=== PATIENT | male | born 1960 | race Caucasian/White ===

== ENCOUNTER 2023-04-21 06:17 | Outpatient (RCR) | payer BC, SELFPAY | END 2023-04-21 23:59 | disposition home or self-care (01) | LOC: RPT 06:17 | PROVIDERS: ATTENDING PHYSICIAN Physician Assistant; FAMILY PHYSICIAN Family Medicine | DX: Z47.1 Aftercare following joint replacement surgery (principal); Z73.6 Limitation of activities due to disability; R26.89 Other abnormalities of gait and mobility; Z96.641 Presence of right artificial hip joint | CPT/HCPCS: 97010; 97110; 97112; 97162 ==

== ENCOUNTER 2023-05-11 18:00 | Outpatient (RCR) | payer BC, SELFPAY | END 2023-05-11 23:59 | disposition home or self-care (01) | LOC: RPT 18:00 | PROVIDERS: ATTENDING PHYSICIAN Physician Assistant; FAMILY PHYSICIAN Family Medicine | DX: Z47.1 Aftercare following joint replacement surgery (principal); Z73.6 Limitation of activities due to disability; R26.89 Other abnormalities of gait and mobility; M25.551 Pain in right hip; Z96.641 Presence of right artificial hip joint | CPT/HCPCS: 97110; 97112 ==

== ENCOUNTER 2024-05-08 09:46 | Emergency (ER) | payer BC, SELFPAY ==
[2024-05-08 09:55] VITALS: BP 163/103
--- NOTE | 2024-05-08 10:56 | ED.GENMED ---
History of Present Illness
General
Chief Complaint: Back Pain
Source: patient
Time Seen by Provider: 05/08/24 10:22
History of Present Illness
History of Present Illness:
63-year-old male with past medical history of hypertension hyperlipoidemia, status post previous spinal fusion surgeries and right hip replacement presenting to the emergency department for evaluation after he fell 1 week ago while at work when he
accidentally stepped in a hole on a job site causing him to fall onto his left side now with gradually worsening pain to the left lower back/hip area that radiates down his left leg. Patient states that the pain was more tolerable at the beginning
of the week but has gradually worsened to the point this morning where he felt he was unable to go to work due to the pain. Patient states around 4 AM he took four 200 mg tablets of ibuprofen and then around 8 AM took an additional 2 tablets. He
states this did give him some relief but he still appears very uncomfortable. Denies any fevers, bowel or urinary incontinence, saddle anesthesias, substance use or any other injuries since the fall 1 week ago. Patient does note he did not notify
his work about the fall.
Past History
Past History
ED Past Medical History: HTN, Hypercholesterolemia and Other (Cervical and lumbar disc disease)
ED Past Surgical History: Orthopedic (Fractured right fibula with surgical repair)
Patient has exhibited threatening behavior?: No
PSI?: No
Social History
Tobacco: Former smoker
Alcohol: Occasional
Drug: None
Personal:
Living: with family
Employment: Employed
Family History
Family History: Negative Diabetes, Hypertension, Early CAD, Asthma or Cancer
Review of Systems
Review of Systems
All Other Systems: ROS reviewed and negative except as documented in HPI and ROS
Phy Exam
Physical Exam
Physical Exam:
GENERAL: Alert , in no apparent distress at rest but does appear uncomfortable with movement
EYE: clear conjunctiva b/l
NECK: Supple
ENT: mmm.
ABDOMEN: Soft, without focal tenderness, no r/g, no cvat
BACK: Normal range of motion, left paralumbar/sacroiliac tenderness, no midline bony tenderness, no rashes
NEUROLOGICAL: Alert and oriented, no focal neuro deficits. Patellar deep tendon reflexes intact and equal bilaterally, sensation grossly intact and equal to light touch bilateral lower extremities
SKIN: Warm and dry, skin intact.
MUSCULOSKELETAL: No edema, well perfused. EHL intact bilaterally
PSYCH: Normal and appropriate interaction.
Scores
Heart Failure Risk
Heart Failure Risk Score: Not Applicable
Heart Score for Chest Pain Patients
STEMI patient?: Not applicable
Withdrawal Assessment of Alcohol
Withdrawal Assessment Completed?: Not applicable
Course
Orders/Labs/Results
Orders:
Orders
05/08/24 10:32
CR Hip - LT w/wo Pel 2-3 Vw* Urgent
Comment:
Reason For Exam: left lower back/hip pain, fall
Include a pelvis x-ray?: Yes
CR Lumbar Spine 2 Or 3 Views Urgent
Reason For Exam: low back pain
Vital Signs
Initial and Last Documented VS:
Initial Vital Signs
Temp Pulse Resp BP Pulse Ox
98 F 95 16 163/103 95
05/08/24 09:55 05/08/24 09:55 05/08/24 09:55 05/08/24 09:55 05/08/24 09:55
Last Documented Vital Signs
Temp Pulse Resp BP Pulse Ox
98 F 83 18 172/102 98
05/08/24 09:55 05/08/24 12:11 05/08/24 12:11 05/08/24 12:11 05/08/24 12:11
MDM/Problems Addressed
Differential Diagnosis Includes:
Lumbar strain, sciatica, spinal stenosis, less concern for fracture of the lumbar spine/pelvis or hip
MDM/Problems Addressed:
63-year-old male presenting to the ER for evaluation of gradually worsening left-sided lower back/hip pain since he had an accidental fall 1 week ago. Attempted NSAIDs this morning with very slight relief. No current red flag symptoms. Will
obtain x-ray to further evaluate. Patient drove himself to the ER here and already took in excess quantity of NSAIDs so unable to treat with that here. Anticipate sending home with temporary prescription for oxycodone, Medrol pack, topical agents
and continued NSAIDs albeit at normal dosing. Patient may need to follow-up with his orthopedic team if symptoms persist. Anticipate discharge home.
*Radiology
Radiology exam reviewed: preliminary read by ED provider (No acute fracture of the pelvis. Significant degenerative changes of the lumbar spine)
*Pulse Oximetry
Patient hypoxic: no
*Critical Care Note
Total Time (30-74mins, 75-104mins- exclusive of procedures): Not Applicable
Data Reviewed
Review of Other/Old Records Reveals: Records and Radiology Studies
Patient Management
Escalation/DeEscalation of care consider admission/obs:
Imaging without any acute pathologies. Patient stable for discharge home and outpatient management. Prescription for Medrol Dosepak and oxycodone sent to pharmacy. [place] PDMP was reviewed without any prescriptive abnormalities found.
ED Attending Note
-
Portions of this chart may have been created with voice recognition software.� Occasional wrong word or��sound alike� substitutions may have occurred due to the inherent limitations of voice recognition software.
Discharge Plan
Departure
Patient Disposition: Home (Routine Discharge)
Date of Disposition: 05/08/24
Time of Disposition: 11:36
Patient with high blood pressure during this ER visit?: Yes
Discharge Problem:
Low back pain
Instructions: Low Back Pain (DC)
Prescriptions:
New
oxycodone-acetaminophen [Percocet] 5-325 mg tablet
1 tab PO Q6HPRN PRN (Reason: pain) Qty: 10 0RF
methylprednisolone [Medrol (Rupesh)] 4 mg tablets,dose pack
4 mg PO DIRECTED Qty: 21 0RF
No Action
ibuprofen 200 MG tablet
600 mg PO Q4HPRN PRN (Reason: pain)
hydrocodone-acetaminophen [Vicodin] 1 EACH tablet
1 ea PO Q6HPRN PRN (Reason: pain) Qty: 12 0RF
oxycodone-acetaminophen [Percocet] 5-325 mg tablet
1 tab PO Q6HPRN PRN (Reason: pain) Qty: 10 0RF
oxycodone-acetaminophen [Percocet] 5-325 mg tablet
1 tab PO Q6HPRN PRN (Reason: pain) Qty: 10 0RF
methylprednisolone [Medrol (Rupesh)] 4 mg tablets,dose pack
4 mg PO DIRECTED Qty: 21 0RF
Referrals:
Paul Gutierrez, DO [Family Provider] -
Stand Alone Forms: Return to Work
Interventions
Interventions:
*Risk Screen - Suicide Last Done: 05/08/24 09:56
*Neglect/Abuse Screening Last Done: 05/08/24 09:56
*Nursing Disposition Last Done: 05/08/24 12:31
ED-Musculoskeletal Assessment Last Done: 05/08/24 12:00
Discharge Date and Time
Discharge Date/Time: 05/08/24 12:32
Print Language: GREEK
[2024-05-08 12:11] VITALS: BP 172/102
== END 2024-05-08 12:32 | disposition home or self-care (01) ==
LOC: EMR 09:46
PROVIDERS: EMERGENCY PHYSICIAN Emergency Medicine; FAMILY PHYSICIAN Family Medicine
DX: M54.50 Low back pain, unspecified (principal); M25.552 Pain in left hip; I10 Essential (primary) hypertension; E78.00 Pure hypercholesterolemia, unspecified; Z98.1 Arthrodesis status; Z96.641 Presence of right artificial hip joint; Z87.891 Personal history of nicotine dependence
CPT/HCPCS: 99284; 72100; 73502

== ENCOUNTER → 2025-01-01 10:53 | Outpatient (REF) | payer BC, SELFPAY | LOC: RAD 10:53 | PROVIDERS: ATTENDING PHYSICIAN Student in an Organized Health Care Education/Training Program; FAMILY PHYSICIAN Family Medicine | DX: M25.561 Pain in right knee (principal); M79.641 Pain in right hand; M79.642 Pain in left hand | CPT/HCPCS: 73130; 73560; 73565; 73630 ==